=== PATIENT | male | born 1960 | race Caucasian/White ===

== ENCOUNTER → 2017-05-04 | Outpatient (CLI) | payer BC ==
[~2017-05-04] MED LIST: ASPIR 8181 M1 PO; MULTIVITAMINS1 EAC7 PO; NORCO 5-325 TA1 EACH PO
[2017-05-04 10:25] VITALS: BP 157/95
== END ==
LOC: OPONC 09:57
DX: D58.2 Other hemoglobinopathies (principal)
CPT/HCPCS: 95100

== ENCOUNTER → 2017-05-09 | Outpatient (CLI) | payer BC ==
[2017-05-09 09:15] VITALS: BP 145/88
[2017-05-09 09:45] VITALS: BP 134/90
== END ==
LOC: OPONC 09:37
DX: E83.119 Hemochromatosis, unspecified (principal); R73.09 Other abnormal glucose
CPT/HCPCS: 95100

== ENCOUNTER → 2017-05-18 | Outpatient (CLI) | payer BC ==
[2017-05-18 09:30] VITALS: BP 168/95
[2017-05-18 09:44] LABS: HEMATOCRIT 54.2 % (42.0-52.0); HEMOGLOBIN 18.4 gm/dL (14.0-18.0); MCH 31.7 pg (26.0-34.0); MCHC 33.9 g/dL (28.0-37.0); MCV 93.5 fL (80.0-100.0); RBC 5.79 mil/uL (4.50-6.00); RDW 13.5 % (10.5-14.5); WBC 5.1 thou/uL (4.0-11.0)
[2017-05-18 10:27] VITALS: BP 164/96
== END ==
LOC: OPONC 09:16
PROVIDERS: Family Medicine
DX: D58.2 Other hemoglobinopathies (principal)
CPT/HCPCS: 95100

== ENCOUNTER → 2018-10-16 | Outpatient (CLI) | payer OTHER | LOC: CAT 08:36 | DX: Z13.6 Encounter for screening for cardiovascular disorders (principal); E78.00 Pure hypercholesterolemia, unspecified ==

== ENCOUNTER → 2020-12-03 | Outpatient (CLI) | payer OTHER ==
[2020-12-03 09:20] VITALS: BP 125/87
[2020-12-03 10:00] VITALS: BP 126/73
--- NOTE | 2020-12-03 17:01 | NUR ---
IN FOR THERAPEUTIC PHLEBOTOMY FOR POLYCYTHEMIA. ADMISSION HISTORY AND ASSESSMENT COMPLETED. MEDICATION RECONCILED. ACCESSED LAC WITH 16 GAUGE NEEDLE AND REMOVED 1 UNIT, 525 GM, 500 ML BLOOD USING BLOOD BAG AND SCALE. SCALE CALIBRATED AND ZEROED PRIOR TO PHLEBOTOMY. PATIENT WAS LIGHT HEADED AFTER PHLEBOTOMY. ATE SOME PEANUT BUTTER CRACKERS AND DRANK 16 OZ. OF [place]. ALSO HYDRATED WITH 500 ML NS OVER 30 MINUTES. AFTER EATING AND HYDRATION PATIENT REPORTED FEELING FINE. POST BP GOOD. POST PHLEBOTOMY INSTRUCTIONS GIVEN TO PATIENT. DISMISSED IN STABLE CONDITION.
== END ==
LOC: OPONC 08:48
PROVIDERS: ATTEND Family Medicine
DX: D45 Polycythemia vera (principal)
CPT/HCPCS: 95100

== ENCOUNTER → 2021-01-19 | Outpatient (CLI) | payer BC ==
[~2021-01-19] MED LIST changes: +ANDRODERM1 EAC2 IMPLANT; +LIPITOR40 MG PO; +LOSARTAN-HCTZ1 EAC3 PO
== END ==
LOC: SJCVCIMAG 14:10
PROVIDERS: ATTEND Internal Medicine Cardiovascular Disease
DX: K76.89 Other specified diseases of liver (principal)

== ENCOUNTER → 2021-01-19 | Outpatient (CLI) | payer BC ==
[~2021-01-19] VITALS: Ht 180.3 cm; Wt 96.2 kg
[2021-01-19 07:11] VITALS: BP 140/80
[2021-01-19 07:24] LABS: HEMATOCRIT 50.2 % (42.0-52.0); HEMOGLOBIN 17.4 gm/dL (14.0-18.0); MCH 32.8 pg (26.0-34.0); MCHC 34.6 g/dL (28.0-37.0); MCV 94.9 fL (80.0-100.0); RBC 5.29 mil/uL (4.50-6.00); RDW 13.9 % (10.5-14.5); WBC 5.5 thou/uL (4.0-11.0)
[2021-01-19 07:31] LABS: CALCIUM 9.2 mg/dL (8.5-10.1); CREATININE 1.1 mg/dL (0.7-1.3); POTASSIUM 4.3 mmol/L (3.5-5.1)
--- NOTE | 2021-01-19 14:14 | NUR ---
PT IN FOR CARDIAC PROCEDURE AND I WAS ASKED TO PERFORM A THERPEUTIC PHLEBOTOMY. PATIENT LYING ON A CART IN CV HOLDING RECOVERING FROM A HEART CATH. ACCESSED LAC WITHOUT DIFFICULTY AND REMOVED 525GM/500ML BLOOD. TOLERATED WELL. POST BP 142/92. PATIENT NPO FOR ULTRASOUND. BEING MONITORED BY CV STAFF GAIL.
--- NOTE | 2021-01-19 17:08 | CATHLAB ---
[facility] [place] [address] INVASIVE PROCEDURE REPORT Name: FARHAN DELGADILLO Room #: REG TIESHA RobertsFarzad#: [id number] Admission: 01/19/21 Attend Phys: Jonathan Williamson MD, Discharge: Date of : 62 Report #: [id number] THIS REPORT FOR: cc: mAado Stokes MD, Neal A. MD Mancuso, Gerald M. MD [facility] ~ APPROVED REPORT Study performed: 01/19/2021 09:15:42 Patient Details Patient Status: Out-Patient Room #: The patient is a 60 year-old male Event Personnel Jonathan Williamson Field Application Engineer, Jose R Brady RN RN, Juani Bruno RTR ScrJordin nash Roberta Monitor Procedures Performed Art Access - R femoral artery* Dontrell Access - R femoral vein Right and Left Heart Cath w/or w/o Coronarie [id number] [facility] Aortogram Abdominal Peripheral Angio [id number] Initial Mod Sed Same Phys/QHP Gr [id number] 66110 Mod Sed Same Phys/QHP Ea [id number] Hemostasis w/ Mynx Indication Chest pain Procedure Narrative The Right Groin^ was infiltrated with 1% Lidocaine subcutaneous anesthesia. A PINNACLE 6FR Sheath #[id number] sheath was inserted into the RFA^. Coronary angiography was performed using coronary diagnostic catheters. The right coronary system was accessed and visualized with a JR4 catheter. The left coronary system was accessed and visualized with a JL4 catheter. The left ventricle was accessed and visualized with a STR PIG catheter. Left ventriculogram was performed in 30 degree projection. The patient tolerated the procedure well and there were no complications associated with the procedure. There was no hematoma. Intraoperative Conscious Sedation Sedation start time: 1037 Case end Time: 1130 Fentanyl 100 mcg Versed 3 mg [facility] [address] [place] [address] INVASIVE PROCEDURE REPORT Name: FARHAN DELGADILLO [facility] [id number] Admission: 01/19/21 Attend Phys: Jonathan Williamson, Discharge: Date of : 62 Report #: [id number] Fluoro Time: 5.30 minutes Dose: DAP 7850.40 cGycm2 835 mGy Contrast Type and Amount: Omnipaque 95 ml Hemodynamics The right atrial mean pressure is 14 mmHg. The right ventricular pressure is 37/0 mmHg. The pulmonary artery pressure is 28/11 mmHg with a mean of 18 mmHg. The mean pulmonary capillary wedge pressure is 6 mmHg. The aortic pressure is 155/74 mmHg with a mean of 40 mmHg. The left ventricular pressure is 131/4 mmHg with a mean of mmHg. The left ventricular end diastolic pressure is 15 mmHg. The cardiac output using thermo method is 5.50 L/min. The cardiac index using thermo method is 2.55 L/min/m2. 7 F SHEATH PULLED AND HELD WITH MANUAL PRESSURE - NO HEMATOMA Conclusion #1. Successful right heart catheterization with cardiac output by thermodilution. See above hemodynamics. #2 normal left jugular size and systolic function EF 55%. #3 abdominal aortogram revealing mild tortuosity but no aneurysm formation. #4 left main with mild irregularity giving rise to LAD and circumflex. #5 LAD with mild irregularities extends around the apex no significant occlusive disease is noted. #6 eccentric long ostial proximal circumflex 50% giving rise to a nondominant OM and system mildly diseased moderate distribution relatively small but dominant right coronary artery with no significant occlusive disease. #7 small nondominant right coronary with mild irregularity proximal no occlusive disease anatomically dominant. Condition plan: Continue aggressive risk factor modification no indication for coronary intervention. Pulmonary pressures are normal. Chest pain and dyspnea shortness of breath are not of a cardiac etiology. <ELECTRONICALLY SIGNED> By: Jonathan Williamson MD, FACC 01/19/211707 07 07 Jonathan Williamson MD, FACC /INF
== END | disposition home or self-care (01) ==
LOC: SJCVCIMAG 01-18 15:16 → CATH 06:24
PROVIDERS: ATTEND Internal Medicine Cardiovascular Disease
DX: R07.9 Chest pain, unspecified (principal); I70.0 Atherosclerosis of aorta; I10 Essential (primary) hypertension; Z98.890 Other specified postprocedural states; Z79.899 Other long term (current) drug therapy; Z79.82 Long term (current) use of aspirin
CPT/HCPCS: 95100